=== PATIENT | female | born 1990 | race Caucasian/White ===

== ENCOUNTER 2017-08-18 16:49 | Emergency (ER) | payer OTHER ==
[2017-08-18 16:55] VITALS: RESP 18
[2017-08-18 16:58] LABS: Glucose,Whole Blood 189 mg/dL (75-99)
[2017-08-18] MEDS ORDERED: SODIUM CHLORIDE 0.9% 1,000 ML IV ONE (17:12)
--- NOTE | 2017-08-18 17:24 | ED ---
Female Urogenital HPI - General Chief complaint: Vaginal Bleeding Stated complaint: Vaginal Bleeding Time Seen by Provider: 08/18/17 17:12 Source: patient Mode of arrival: wheelchair Limitations: no limitations - History of Present Illness Initial comments: 26 year-old female patient presents to the emergency department today for evaluation of vaginal bleeding 24 hours. Patient states that she has had heavy vaginal bleeding with passage of large clots starting yesterday. She states that she has went through a whole box of pads. States she is changing her pads approximately every hour. She states that she has not had a menstrual period for the last 3 months. States that 3 months ago she did go to get an elective however when she arrived there they told her she was not . Patient states that today she is feeling very weak. She did have a syncopal episode while waiting in the waiting room. Patient is a A1. Patient had a spontaneous miscarriage approximate 3 years ago and did undergo D& C after that event. She states that she did have heavy bleeding like this after her D&C. She denies any issues since then. Patient states that she has been having intense cramping in her suprapubic region. She denies any back pain with this. Denies any abnormal vaginal discharge or odor leading up to this. Patient denies any recent rash, fever, chills, shortness breath, chest pain, nausea, vomiting, diarrhea, constipation, back pain, numbness, tingling, hematuria, dysuria, urinary urgency, urinary frequency, headache, visual changes , or any other complaints. Last Menstrual Period: 05/03/17 - Related Data Home Medications Medication Instructions Recorded Confirmed Acetaminophen Tab [Tylenol Tab] 1,000 mg PO Q6HR PRN 08/18/17 08/18/17 Previous Rx's Medication Instructions Recorded HYDROcodone/APAP 7.5-325MG [[place] 1 tab PO Q6HR PRN #20 tab 08/18/17 7.5-325] Ibuprofen [Motrin] 600 mg PO Q6HR PRN #30 tab 08/18/17 Methylergonovine [Methergine] 0.2 mg PO TID #14 tablet 08/18/17 Allergies Allergy/AdvReac Type Severity Reaction Status Date / Time No Known Allergies Allergy Verified 08/18/17 17:37 Review of Systems ROS Statement: Those systems with pertinent positive or pertinent negative responses have been documented in the HPI. ROS Other: All systems not noted in ROS Statement are negative. Past Medical History Past Medical History: Diabetes Mellitus History of Any Multi-Drug Resistant Organisms: None Reported Past Surgical History: No Surgical Hx Reported Past Psychological History: No Psychological Hx Reported Smoking Status: Never smoker Past Alcohol Use History: None Reported Past Drug Use History: Marijuana General Exam Limitations: no limitations General appearance: alert, in no apparent distress, other (Physical well- developed, well-nourished, pale appearing adult female patient. Vital signs upon presentation are temperature 98.2F, pulse 100, respirations 18, blood pressure 111/70, pulse ox 100% on room air.) Eye exam: Present: normal appearance, PERRL, EOMI. Absent: scleral icterus, conjunctival injection, periorbital swelling ENT exam: Present: normal exam, normal oropharynx, mucous membranes moist Neck exam: Present: normal inspection. Absent: tenderness, meningismus, lymphadenopathy Respiratory exam: Present: normal lung sounds bilaterally. Absent: respiratory distress, wheezes, rales, rhonchi, stridor Cardiovascular Exam: Present: regular rate, normal rhythm, normal heart sounds. Absent: systolic murmur, diastolic murmur, rubs, gallop, clicks GI/Abdominal exam: Present: soft, tenderness (Mild suprapubic tenderness), normal bowel sounds. Absent: distended, guarding, rebound, rigid External exam: Present: normal external exam Speculum exam: Present: vaginal bleeding (Heavy vaginal bleeding, dark red), other (Large clots removed from the vaginal vault, no evidence of tissue noted). Absent: normal speculum exam Neurological exam: Present: oriented X3, CN II-XII intact. Absent: alert ( Drowsy) Psychiatric exam: Present: normal affect, normal mood Skin exam: Present: dry, intact, diaphoretic, pallor. Absent: warm (cool), normal color, rash Course Vital Signs 08/18/17 08/18/17 08/18/17 16:51 17:38 18:09 Temperature 98.2 F Pulse Rate 100 68 67 Respiratory 18 18 18 Rate Blood Pressure 111/70 101/81 94/69 O2 Sat by Pulse 100 100 100 Oximetry 08/18/17 08/18/17 08/18/17 19:45 20:26 21:16 Temperature Pulse Rate 78 72 73 Respiratory 18 18 18 Rate Blood Pressure 111/56 91/52 96/55 O2 Sat by Pulse 98 99 99 Oximetry 08/18/17 22:09 Temperature 97.1 F L Pulse Rate 77 Respiratory 18 Rate Blood Pressure 97/56 O2 Sat by Pulse 99 Oximetry Medical Decision Making - Medical Decision Making 26 year-old female patient presented to the emergency department today for evaluation of heavy vaginal bleeding 24 hours. Patient did have a syncopal episode in the waiting room which I witnessed, patient was very pale and unresponsive, episode lasted approximately 30 seconds. Physical examination did reveal some suprapubic abdominal tenderness. Pelvic examination was performed and did reveal copious amounts of vaginal bleeding with large clots which I removed with ring forceps. Labs were reviewed and did show a normal H& H. HCG was around 6000 today. Ultrasound of the pelvis did show irregular- shaped fluid collection extending into the cervix and upper vagina, heterogeneity in the cervix and vagina that is ill-defined and could also relate to blood products although underlying mass is possible, heterogenous and hypervascular thickened endometrium. Patient blood pressures did decrease into the upper 80s and low 90s. She did receive 2500 mL of normal saline fluid bolus. Initially patient was symptomatic with dizziness upon standing. My attending Dr. Stark did consult RN SPINE Dr. Gordillo who saw patient here in the emergency department. She was able to obtain what appeared to be products of conception from the cervix and vagina. These were sent to the lab for further studies. Patient bleeding did improve. Patient blood pressures have improved. She is able to ambulate without dizziness. She will be discharged home at this time to follow-up with Dr. Gordillo in the office in one week. Dr. Gordillo has provided prescriptions for her. She is instructed to return here immediately should her bleeding increase, or if she develops any other new or worsening symptoms. Patient and significant other have been informed of all results. They verbalize understanding and agree with this plan. - Lab Data Result diagrams: 08/18/17 17:09 08/18/17 17:09 Lab Results 08/18/17 08/18/17 08/18/17 Range/Units 16:54 17:09 17:09 WBC 14.8 H (3.8-10.6) k/uL RBC 4.17 (3.80-5.40) m/uL Hgb 11.8 (11.4-16.0) gm/dL Hct 35.4 (34.0-46.0) % MCV 84.9 (80.0-100.0) fL MCH 28.3 (25.0-35.0) pg MCHC 33.4 (31.0-37.0) g/dL RDW 15.3 (11.5-15.5) % Plt Count 250 (150-450) k/uL Neutrophils % 82 % Lymphocytes % 12 % Monocytes % 3 % Eosinophils % 2 % Basophils % 0 % Neutrophils # 12.1 H (1.3-7.7) k/uL Lymphocytes # 1.8 (1.0-4.8) k/uL Monocytes # 0.5 (0-1.0) k/uL Eosinophils # 0.3 (0-0.7) k/uL Basophils # 0.1 (0-0.2) k/uL PT (9.0-12.0) sec INR (<1.2) APTT (22.0-30.0) sec Sodium 135 L (137-145) mmol/L Potassium 4.0 (3.5-5.1) mmol/L Chloride 102 (98-107) mmol/L Carbon Dioxide 24 (22-30) mmol/L Anion Gap 9 mmol/L BUN 11 (7-17) mg/dL Creatinine 0.70 (0.52-1.04) mg/dL Est GFR (MDRD) Af Amer >60 (>60 ml/min/1.73 sqM) Est GFR (MDRD) Non-Af >60 (>60 ml/min/1.73 sqM) Glucose 120 H (74-99) mg/dL POC Glucose (mg/dL) 189 H (75-99) mg/dL POC Glu Dinkey Brakeman ID Danae Kendrick Calcium 9.3 (8.4-10.2) mg/dL Total Bilirubin 0.7 (0.2-1.3) mg/dL AST 24 (14-36) U/L ALT 36 (9-52) U/L Alkaline Phosphatase 42 (38-126) U/L Total Protein 6.5 (6.3-8.2) g/dL Albumin 4.0 (3.5-5.0) g/dL HCG, Qual Detected HCG, Quant mIU/mL Blood Type Blood Type Confirm Blood Type Recheck Antibody Screen Spec Expiration Date 08/18/17 08/18/17 08/18/17 Range/Units 17:09 17:09 17:09 WBC (3.8-10.6) k/uL RBC (3.80-5.40) m/uL Hgb (11.4-16.0) gm/dL Hct (34.0-46.0) % MCV (80.0-100.0) fL MCH (25.0-35.0) pg MCHC (31.0-37.0) g/dL RDW (11.5-15.5) % Plt Count (150-450) k/uL Neutrophils % % Lymphocytes % % Monocytes % % Eosinophils % % Basophils % % Neutrophils # (1.3-7.7) k/uL Lymphocytes # (1.0-4.8) k/uL Monocytes # (0-1.0) k/uL Eosinophils # (0-0.7) k/uL Basophils # (0-0.2) k/uL PT 11.1 (9.0-12.0) sec INR 1.1 (<1.2) APTT 21.7 L (22.0-30.0) sec Sodium (137-145) mmol/L Potassium (3.5-5.1) mmol/L Chloride (98-107) mmol/L Carbon Dioxide (22-30) mmol/L Anion Gap mmol/L BUN (7-17) mg/dL Creatinine (0.52-1.04) mg/dL Est GFR (MDRD) Af Amer (>60 ml/min/1.73 sqM) Est GFR (MDRD) Non-Af (>60 ml/min/1.73 sqM) Glucose (74-99) mg/dL POC Glucose (mg/dL) (75-99) mg/dL POC Glu Dinkey Brakeman ID Calcium (8.4-10.2) mg/dL Total Bilirubin (0.2-1.3) mg/dL AST (14-36) U/L ALT (9-52) U/L Alkaline Phosphatase (38-126) U/L Total Protein (6.3-8.2) g/dL Albumin (3.5-5.0) g/dL HCG, Qual HCG, Quant 6519.4 mIU/mL Blood Type AB Positive Blood Type Confirm Blood Type Recheck CABO Indicated Antibody Screen NEGATIVE Spec Expiration Date 08/21/2017230808/18/17 Range/Units 18:20 WBC (3.8-10.6) k/uL RBC (3.80-5.40) m/uL Hgb (11.4-16.0) gm/dL Hct (34.0-46.0) % MCV (80.0-100.0) fL MCH (25.0-35.0) pg MCHC (31.0-37.0) g/dL RDW (11.5-15.5) % Plt Count (150-450) k/uL Neutrophils % % Lymphocytes % % Monocytes % % Eosinophils % % Basophils % % Neutrophils # (1.3-7.7) k/uL Lymphocytes # (1.0-4.8) k/uL Monocytes # (0-1.0) k/uL Eosinophils # (0-0.7) k/uL Basophils # (0-0.2) k/uL PT (9.0-12.0) sec INR (<1.2) APTT (22.0-30.0) sec Sodium (137-145) mmol/L Potassium (3.5-5.1) mmol/L Chloride (98-107) mmol/L Carbon Dioxide (22-30) mmol/L Anion Gap mmol/L BUN (7-17) mg/dL Creatinine (0.52-1.04) mg/dL Est GFR (MDRD) Af Amer (>60 ml/min/1.73 sqM) Est GFR (MDRD) Non-Af (>60 ml/min/1.73 sqM) Glucose (74-99) mg/dL POC Glucose (mg/dL) (75-99) mg/dL POC Glu Dinkey Brakeman ID Calcium (8.4-10.2) mg/dL Total Bilirubin (0.2-1.3) mg/dL AST (14-36) U/L ALT (9-52) U/L Alkaline Phosphatase (38-126) U/L Total Protein (6.3-8.2) g/dL Albumin (3.5-5.0) g/dL HCG, Qual HCG, Quant mIU/mL Blood Type Blood Type Confirm AB Positive Blood Type Recheck Antibody Screen Spec Expiration Date 08/18/17 18:21 EKG obtained at 1717 shows normal sinus rhythm with a ventricular rate of 72, OK interval 160, QRS duration 82, QT 422, QTc 462. No evidence of ST elevation or depression. - Radiology Data Radiology results: report reviewed, image reviewed Ultrasound of the pelvis was obtained, report reviewed in its entirety, impression by Dr. Machado shows diffusely thickened and heterogenous hypervascular endometrium containing an irregular-shaped fluid collection extending into the cervix and upper vagina. Correlate with beta hCG is this could represent expelling of an embryonic or large evolving hematoma. Extensive heterogeneity within the cervix and vagina that is ill-defined and could also relate to blood products although underlying masses possible direct visualization is recommended. Heterogenous hypervascular thickened endometrium should be correlated with him of prior D&C as retained products of conception and endometrits could be possible in the appropriate clinical setting. Disposition Clinical Impression: Spontaneous , Vaginal bleeding, Syncope Disposition: HOME SELF-CARE Condition: Good Instructions: Miscarriage (ED) Additional Instructions: Monitor bleeding. Pelvic rest, no sexual intercourse, do not insert anything into the vagina. Increase fluids. Keep appointment with RN [facility]. Follow-up with your primary care physician for recheck in 1-2 days. Return here immediately for any new, worsening, or concerning symptoms. Prescriptions: HYDROcodone/APAP 7.5-325MG [[place] 7.5-325] 1 tab PO Q6HR PRN #20 tab PRN Reason: Pain Ibuprofen [Motrin] 600 mg PO Q6HR PRN #30 tab PRN Reason: Mild Pain Or Fever >= 100.5 Methylergonovine [Methergine] 0.2 mg PO TID #14 tablet Referrals: Keisha Gordillo DO [Doctor of Osteopathic Medicine] - 1 Week None,Stated [Primary Care Provider] - 1-2 days Time of Disposition: 21:42
[2017-08-18 17:44] LABS: Basophils # (A) 0.1 k/uL (0-0.2); Basophils % (A) 0 %; Eosinophils # (A) 0.3 k/uL (0-0.7); Eosinophils % (A) 2 %; HCT 35.4 % (34.0-46.0); HGB 11.8 gm/dL (11.4-16.0); Lymphocytes # (A) 1.8 k/uL (1.0-4.8); Lymphocytes % (A) 12 %; MCH 28.3 pg (25.0-35.0); MCHC 33.4 g/dL (31.0-37.0); MCV 84.9 fL (80.0-100.0); Mean Platelet Volume 8.9; Monocytes # (A) 0.5 k/uL (0-1.0); Monocytes % (A) 3 %; Neutrophils # (A) 12.1 k/uL (1.3-7.7); Neutrophils % (A) 82 %; Platelet Count 250 k/uL (150-450); RBC 4.17 m/uL (3.80-5.40); RDW 15.3 % (11.5-15.5); WBC 14.8 k/uL (3.8-10.6)
[2017-08-18 17:52] LABS: HCG,Qualitative Serum Detected
[2017-08-18 17:54] LABS: ALT 36 U/L (9-52); AST 24 U/L (14-36); Alkaline Phosphatase 42 U/L (38-126); Anion Gap 9 mmol/L; Blood Urea Nitrogen 11 mg/dL (7-17); Calcium 9.3 mg/dL (8.4-10.2); Carbon Dioxide 24 mmol/L (22-30); Chloride 102 mmol/L (98-107); Glucose 120 mg/dL (74-99); Sodium 135 mmol/L (137-145); Total Bilirubin 0.7 mg/dL (0.2-1.3); Total Protein 6.5 g/dL (6.3-8.2)
[2017-08-18 17:59] LABS: INR 1.1 (<1.2); Prothrombin Time 11.1 sec (9.0-12.0)
[2017-08-18 18:01] LABS: Partial Thromboplastin Time 21.7 sec (22.0-30.0)
[2017-08-18] MEDS ORDERED: SODIUM CHLORIDE 0.9% 1,000 ML IV STA (18:15)
--- NOTE | 2017-08-18 19:20 | US ---
EXAMINATION TYPE: US OB <=14 wks transvag DATE OF EXAM: 08/18/2017 COMPARISON: NONE CLINICAL HISTORY: pain. Bleeding and cramping x 2 days, 5, para 3, miscarriage 1, history of D&C EXAM PERFORMED: Transvaginal (TV) and Transabdominal (TA) EXAM MEASUREMENTS: GESTATIONAL AGE / DATING Physician Established: Not established yet Dates by LMP: Unknown Dates by First Scan: This is first scan Dates by Current Scan for: No IUP seen at this time MATERNAL ANATOMY Uterus: 12.3 x 5.8 x 6.6cm Endometrium: thickened at 2.4cm, heterogeneous, hypervascular, 3.1cm cystic area endocervical canal Right Ovary: 3.0 x 1.9 x 1.8cm Left Ovary: 2.4 x 1.0 x 2.2cm Post CDS / Adnexa: wnl Presence of free fluid: no Presence of corpus luteal cyst: no 6.5 x 4.3 x 9.7cm complex area that appears to be within upper portion of vagina, possible blood cl ot vs. gestational sac. GESTATION / SURVEY IUP: No IUP seen at this time Date of LMP: 3 months ago Beta HcG (if available): Not available at time of exam IMPRESSION: 1. Diffusely thickened and heterogenous hypervascular endometrium containing an irregular shaped flui d collection extending into the cervix and upper vagina. Correlate with beta-hCG as this could repres ent expelling of an embryonic or large evolving hematoma. 2. Extensive heterogeneity within the cervix and vagina that is ill-defined and could also relate to blood products although underlying mass is possible and direct visualization is recommended. 3. Heterogenous hypervascular thickened endometrium should be correlated with time of prior D&C as re tained products of conception and endometritis could be possible in the appropriate clinical setting.
[2017-08-18] MEDS ORDERED: HYDROmorphone 1 MG/ML 1 ML SYRINGE IVP STA (19:56)
[2017-08-18] MEDS ORDERED: ONDANSETRON 4 MG/2 ML VIAL IVP STA (19:56)
[2017-08-18] MEDS ORDERED: SODIUM CHLORIDE 0.9% 500 ML IV ONE (20:25)
[2017-08-18] MEDS ORDERED: ACETAMINOPHEN IV (For NPO) 1,000 MG in EMPTY BAG 1 BAG IVPB ONE (20:26)
[2017-08-18] MEDS ORDERED: METHYLERGONOVINE 0.2 MG/ML 1 ML AMP IM ONE (21:03)
--- NOTE | 2017-08-18 21:30 | P.OBCN ---
History of Present Illness Consult date: 08/18/17 Reason for consult: early problem (spontaneous ) Chief complaint: Pt presented with heavy vaginal bleeding and +preg test History of present illness: 26 year old presented to the ER with some heavy vaginal bleeding. She had a syncopal episode in the waiting room due to the bleeding and was passing clots and changing pads every half hour. bhcg was over 6000 today. US showed thickened endometrium and gestational sac in the lower cervical area, and clots in the vagina. The PA pulled clots from her vagina before I got here. pt contunes to have some heavy bleeding and cramping. Review of Systems All systems: negative Constitutional: Denies chills, Denies fever Eyes: denies blurred vision, denies pain Ears, nose, mouth and throat: Denies headache, Denies sore throat Cardiovascular: Denies chest pain, Denies shortness of breath Respiratory: Denies cough Gastrointestinal: Denies abdominal pain, Denies diarrhea, Denies nausea, Denies vomiting Genitourinary: Denies dysuria, Denies hematuria Musculoskeletal: Denies myalgias Integumentary: Denies pruritus, Denies rash Neurological: Denies numbness, Denies weakness Psychiatric: Denies anxiety, Denies depression Endocrine: Denies fatigue, Denies weight change Past Medical History Past Medical History: Diabetes Mellitus Additional Past Medical History / Comment(s): She has had 3 vaginal deliveries, one D&C for missed ab in 2010 and this is her fifth -she did not know she was until she started bleeding yesterday. History of Any Multi-Drug Resistant Organisms: None Reported Past Surgical History: No Surgical Hx Reported Past Psychological History: No Psychological Hx Reported Smoking Status: Never smoker Past Alcohol Use History: None Reported Past Drug Use History: Marijuana Medications and Allergies Home Medications Medication Instructions Recorded Confirmed Type Acetaminophen Tab [Tylenol Tab] 1,000 mg PO Q6HR PRN 08/18/17 08/18/17 History HYDROcodone/APAP 7.5-325MG [[place] 1 tab PO Q6HR PRN #20 tab 08/18/17 Rx 7.5-325] Ibuprofen [Motrin] 600 mg PO Q6HR PRN #30 tab 08/18/17 Rx Methylergonovine [Methergine] 0.2 mg PO TID #14 tablet 08/18/17 Rx Allergies Allergy/AdvReac Type Severity Reaction Status Date / Time No Known Allergies Allergy Verified 08/18/17 17:37 Exam Osteopathic Statement: *. No significant issues noted on an osteopathic structural exam other than those noted in the History and Physical/Consult. - Vital Signs Vital signs: Vital Signs Temp Pulse Resp BP Pulse Ox 08/18/17 20:26 72 18 91/52 99 08/18/17 19:45 78 18 111/56 98 08/18/17 18:09 67 18 94/69 100 08/18/17 17:38 68 18 101/81 100 08/18/17 16:51 98.2 F 100 18 111/70 100 Intake and Output 08/18/17 08/18/17 08/18/17 06:59 14:59 22:59 Other: Weight 53.07 kg Patient Weight 08/19/17 06:59 Weight 53.07 kg heart: RRR Lungs; CTAB Abdomen: soft, nontender Extremeties: neg samantha's pelvic exam: cervix is dilated, I did extract several clots and tissue from the uterus but the bleeding and cramping did slow after evacuation of these. Results Result Diagrams: 08/18/17 17:09 08/18/17 17:09 Abnormal Lab Results - Last 24 Hours (Table) 08/18/17 08/18/17 08/18/17 Range/Units 16:54 17:09 17:09 WBC 14.8 H (3.8-10.6) k/uL Neutrophils # 12.1 H (1.3-7.7) k/uL APTT (22.0-30.0) sec Sodium 135 L (137-145) mmol/L Glucose 120 H (74-99) mg/dL POC Glucose (mg/dL) 189 H (75-99) mg/dL 08/18/17 Range/Units 17:09 WBC (3.8-10.6) k/uL Neutrophils # (1.3-7.7) k/uL APTT 21.7 L (22.0-30.0) sec Sodium (137-145) mmol/L Glucose (74-99) mg/dL POC Glucose (mg/dL) (75-99) mg/dL Assessment and Plan (1) Spontaneous Current Visit: Yes Status: Acute Code(s): O03.9 - COMPLETE OR UNSP SPONTANEOUS WITHOUT COMPLICATION SNOMED Code(s): 53659898 Plan: 1. As long as she remains stable I will follow up with her outpatient 2. she will be discharged with methergine, norco, motrin and rx to have bhcg drawn weekly until zero. I will see her in my office next week.
[2017-08-18] MEDS ORDERED: HYDROcodone/APAP 5-325MG 1 EACH TAB PO STA (21:41)
[2017-08-18 22:10] VITALS: BP 97/56; PULSE 77; TEMP 97.1
== END 2017-08-18 22:10 | disposition home or self-care (01) ==
LOC: EC 16:49
DX: O03.9 Complete or unspecified spontaneous abortion without complication (principal); O99.89 Other specified diseases and conditions complicating pregnancy, childbirth and the puerperium; R61 Generalized hyperhidrosis; Z3A.00 Weeks of gestation of pregnancy not specified
CPT/HCPCS: 36415; 93005; 86900; 86901; 80053; 85025; 85610; 85730; 86850; 84703; 84702; 76801; 76817; 99285; 96365; 96375; 96361 ×4; 96372; J2210; J2405; J0131; 88305

== ENCOUNTER 2017-12-03 03:06 | Emergency (ER) | payer OTHER ==
[2017-12-03 03:15] VITALS: RESP 16; TEMP 98.1
[2017-12-03] MEDS ORDERED: RX INFO: IV CONTRAST WAS GIVEN 1 EACH MISC MISCELLANE PRN (03:16)
--- NOTE | 2017-12-03 03:19 | ED ---
General Adult HPI - General Chief complaint: Abdominal Pain Stated complaint: Abdominal Pain Time Seen by Provider: 12/03/17 03:10 Source: patient, EMS, RN notes reviewed Mode of arrival: EMS Limitations: no limitations - History of Present Illness Initial comments: This is a 27-year-old female who states she has bone cancer. Patient comes in today because she woke up in the middle the night with abdominal pain and states it was so severe it made her pass out briefly. Patient states she has an abrasion to the right cheek and her face but there is no pain. Patient denies any head trauma. Patient denies any neck pain. Patient denies any chest pain difficulty breathing shortness breath per patient denies any extremity pain. Patient states the abdominal pain is in the periumbilical. Patient denies any previous abdominal surgeries - Related Data Previous Rx's Medication Instructions Recorded HYDROcodone/APAP 7.5-325MG [[place] 1 tab PO Q6HR PRN #20 tab 08/18/17 7.5-325] Ibuprofen [Motrin] 600 mg PO Q6HR PRN #30 tab 08/18/17 Methylergonovine [Methergine] 0.2 mg PO TID #14 tablet 08/18/17 Allergies Allergy/AdvReac Type Severity Reaction Status Date / Time No Known Allergies Allergy Verified 08/24/17 07:55 Review of Systems ROS Statement: Those systems with pertinent positive or pertinent negative responses have been documented in the HPI. ROS Other: All systems not noted in ROS Statement are negative. Past Medical History Past Medical History: Diabetes Mellitus Additional Past Medical History / Comment(s): possible cancer dx History of Any Multi-Drug Resistant Organisms: None Reported Past Surgical History: No Surgical Hx Reported Past Psychological History: No Psychological Hx Reported Smoking Status: Former smoker Past Alcohol Use History: None Reported Past Drug Use History: Marijuana General Exam - General Exam Comments Initial Comments: GENERAL: Patient is well-developed and well-nourished. Patient is nontoxic and well- hydrated and is in mild distress. ENT: Neck is soft and supple. No significant lymphadenopathy is noted. Oropharynx is clear. Moist mucous membranes. Neck has full range of motion without eliciting any pain. EYES: The sclera were anicteric and conjunctiva were pink and moist. Extraocular movements were intact and pupils were equal round and reactive to light. Eyelids were unremarkable. PULMONARY: Unlabored respirations. Good breath sounds bilaterally. No audible rales rhonchi or wheezing was noted. CARDIOVASCULAR: There is a regular rate and rhythm without any murmurs gallops or rubs. ABDOMEN: Patient's periumbilical pain no rebound or guarding. No palpable organomegaly was noted. There is no palpable pulsatile mass. SKIN: Superficial abrasion to the right cheek NEUROLOGIC: Patient is alert and oriented x3. Cranial nerves II through XII are grossly intact. Motor and sensory are also intact. Normal speech, volume and content. Symmetrical smile. MUSCULOSKELETAL: Normal extremities with adequate strength and full range of motion. No lower extremity swelling or edema. No calf tenderness. LYMPHATICS: No significant lymphadenopathy is noted PSYCHIATRIC: Normal psychiatric evaluation. Normal interpersonal interactions appears functionally intact in deals appropriately with others. No signs of depression. No signs of anxiety. Limitations: no limitations Course Vital Signs 12/03/17 03:11 Temperature 98.1 F Pulse Rate 74 Respiratory 16 Rate Blood Pressure 111/55 O2 Sat by Pulse 100 Oximetry Medical Decision Making - Medical Decision Making Patient was sleeping when I walked in the room I woke her up she still said she was having abdominal pain that was somewhat improved so I gave her a little bit of morphine at this time - Lab Data Result diagrams: 12/03/17 03:17 12/03/17 03:17 Lab Results 12/03/17 12/03/17 12/03/17 Range/Units 03:17 03:17 04:00 WBC 5.3 (3.8-10.6) k/uL RBC 4.64 (3.80-5.40) m/uL Hgb 9.8 L (11.4-16.0) gm/dL Hct 32.1 L (34.0-46.0) % MCV 69.1 L (80.0-100.0) fL MCH 21.2 L (25.0-35.0) pg MCHC 30.6 L (31.0-37.0) g/dL RDW 16.5 H (11.5-15.5) % Plt Count 177 (150-450) k/uL Neutrophils % 44 % Lymphocytes % 39 % Monocytes % 7 % Eosinophils % 5 % Basophils % 1 % Neutrophils # 2.3 (1.3-7.7) k/uL Lymphocytes # 2.1 (1.0-4.8) k/uL Monocytes # 0.4 (0-1.0) k/uL Eosinophils # 0.3 (0-0.7) k/uL Basophils # 0.0 (0-0.2) k/uL Hypochromasia Moderate Anisocytosis Slight Microcytosis Marked Sodium 142 (137-145) mmol/L Potassium 3.7 (3.5-5.1) mmol/L Chloride 106 (98-107) mmol/L Carbon Dioxide 26 (22-30) mmol/L Anion Gap 10 mmol/L BUN 15 (7-17) mg/dL Creatinine 0.70 (0.52-1.04) mg/dL Est GFR (CKD-EPI)AfAm >90 (>60 ml/min/1.73 sqM) Est GFR (CKD-EPI)NonAf >90 (>60 ml/min/1.73 sqM) Glucose 111 H (74-99) mg/dL Calcium 8.8 (8.4-10.2) mg/dL Total Bilirubin 0.1 L (0.2-1.3) mg/dL AST 21 (14-36) U/L ALT 26 (9-52) U/L Alkaline Phosphatase 42 (38-126) U/L Total Protein 6.2 L (6.3-8.2) g/dL Albumin 3.7 (3.5-5.0) g/dL Amylase 64 (30-110) U/L Lipase 64 (23-300) U/L Urine Color Urine Appearance (Clear) Urine pH (5.0-8.0) Ur Specific [place] (1.001-1.035) Urine Protein (Negative) Urine Glucose (UA) (Negative) Urine Ketones (Negative) Urine Blood (Negative) Urine Nitrite (Negative) Urine Bilirubin (Negative) Urine Urobilinogen (<2.0) mg/dL Ur Leukocyte Esterase (Negative) Urine RBC (0-5) /hpf Urine WBC (0-5) /hpf Ur Squamous Epith Cells (0-4) /hpf Hyaline Casts (0-2) /lpf Urine Mucus (None) /hpf Urine HCG, Qual (Not Detectd) Urine Opiates Screen Not Detected (NotDetected) Ur Oxycodone Screen Not Detected (NotDetected) Urine Methadone Screen Not Detected (NotDetected) Ur Propoxyphene Screen Not Detected (NotDetected) Ur Barbiturates Screen Not Detected (NotDetected) U Tricyclic Antidepress Not Detected (NotDetected) Ur Phencyclidine Scrn Not Detected (NotDetected) Ur Amphetamines Screen Not Detected (NotDetected) U Methamphetamines Scrn Not Detected (NotDetected) U Benzodiazepines Scrn Not Detected (NotDetected) Urine Cocaine Screen Not Detected (NotDetected) U Marijuana (THC) Screen Detected H (NotDetected) 12/03/17 12/03/17 Range/Units 04:00 04:00 WBC (3.8-10.6) k/uL RBC (3.80-5.40) m/uL Hgb (11.4-16.0) gm/dL Hct (34.0-46.0) % MCV (80.0-100.0) fL MCH (25.0-35.0) pg MCHC (31.0-37.0) g/dL RDW (11.5-15.5) % Plt Count (150-450) k/uL Neutrophils % % Lymphocytes % % Monocytes % % Eosinophils % % Basophils % % Neutrophils # (1.3-7.7) k/uL Lymphocytes # (1.0-4.8) k/uL Monocytes # (0-1.0) k/uL Eosinophils # (0-0.7) k/uL Basophils # (0-0.2) k/uL Hypochromasia Anisocytosis Microcytosis Sodium (137-145) mmol/L Potassium (3.5-5.1) mmol/L Chloride (98-107) mmol/L Carbon Dioxide (22-30) mmol/L Anion Gap mmol/L BUN (7-17) mg/dL Creatinine (0.52-1.04) mg/dL Est GFR (CKD-EPI)AfAm (>60 ml/min/1.73 sqM) Est GFR (CKD-EPI)NonAf (>60 ml/min/1.73 sqM) Glucose (74-99) mg/dL Calcium (8.4-10.2) mg/dL Total Bilirubin (0.2-1.3) mg/dL AST (14-36) U/L ALT (9-52) U/L Alkaline Phosphatase (38-126) U/L Total Protein (6.3-8.2) g/dL Albumin (3.5-5.0) g/dL Amylase (30-110) U/L Lipase (23-300) U/L Urine Color Yellow Urine Appearance Clear (Clear) Urine pH 7.5 (5.0-8.0) Ur Specific [place] 1.021 (1.001-1.035) Urine Protein 1+ H (Negative) Urine Glucose (UA) Negative (Negative) Urine Ketones Negative (Negative) Urine Blood Negative (Negative) Urine Nitrite Negative (Negative) Urine Bilirubin Negative (Negative) Urine Urobilinogen <2.0 (<2.0) mg/dL Ur Leukocyte Esterase Trace H (Negative) Urine RBC <1 (0-5) /hpf Urine WBC 2 (0-5) /hpf Ur Squamous Epith Cells <1 (0-4) /hpf Hyaline Casts 9 H (0-2) /lpf Urine Mucus Few H (None) /hpf Urine HCG, Qual Not Detected (Not Detectd) Urine Opiates Screen (NotDetected) Ur Oxycodone Screen (NotDetected) Urine Methadone Screen (NotDetected) Ur Propoxyphene Screen (NotDetected) Ur Barbiturates Screen (NotDetected) U Tricyclic Antidepress (NotDetected) Ur Phencyclidine Scrn (NotDetected) Ur Amphetamines Screen (NotDetected) U Methamphetamines Scrn (NotDetected) U Benzodiazepines Scrn (NotDetected) Urine Cocaine Screen (NotDetected) U Marijuana (THC) Screen (NotDetected) Disposition Clinical Impression: Anemia, Abdominal pain Disposition: HOME SELF-CARE Instructions: Abdominal Pain (ED) Referrals: Rodrigo Mcdermott MD [Primary Care Provider] - 1-2 days Time of Disposition: 05:22
[2017-12-03] MEDS ORDERED: KETOROLAC 60 MG/2 ML VIAL IVP STA (03:23)
[2017-12-03 03:26] LABS: Anisocytosis Slight; Basophils % (A) 1 %; Eosinophils # (A) 0.3 k/uL (0-0.7); Eosinophils % (A) 5 %; HCT 32.1 % (34.0-46.0); HGB 9.8 gm/dL (11.4-16.0); Hypochromasia Moderate; Lymphocytes # (A) 2.1 k/uL (1.0-4.8); Lymphocytes % (A) 39 %; MCH 21.2 pg (25.0-35.0); MCHC 30.6 g/dL (31.0-37.0); MCV 69.1 fL (80.0-100.0); Mean Platelet Volume 7.5; Microcytosis Marked; Monocytes # (A) 0.4 k/uL (0-1.0); Monocytes % (A) 7 %; Neutrophils # (A) 2.3 k/uL (1.3-7.7); Neutrophils % (A) 44 %; Platelet Count 177 k/uL (150-450); RBC 4.64 m/uL (3.80-5.40); RDW 16.5 % (11.5-15.5); WBC 5.3 k/uL (3.8-10.6)
[2017-12-03 03:37] LABS: ALT 26 U/L (9-52); AST 21 U/L (14-36); Albumin 3.7 g/dL (3.5-5.0); Alkaline Phosphatase 42 U/L (38-126); Amylase 64 U/L (30-110); Anion Gap 10 mmol/L; Blood Urea Nitrogen 15 mg/dL (7-17); Calcium 8.8 mg/dL (8.4-10.2); Carbon Dioxide 26 mmol/L (22-30); Chloride 106 mmol/L (98-107); Glucose 111 mg/dL (74-99); Lipase 64 U/L (23-300); Potassium 3.7 mmol/L (3.5-5.1); Sodium 142 mmol/L (137-145); Total Bilirubin 0.1 mg/dL (0.2-1.3); Total Protein 6.2 g/dL (6.3-8.2)
[2017-12-03 04:18] LABS: Amphetamine Screen,Urine Not Detected (NotDetected); Barbiturate Screen,Urine Not Detected (NotDetected); Benzodiazepines Screen,Urine Not Detected (NotDetected); Cocaine Screen,Urine Not Detected (NotDetected); Methadone Screen, Urine Not Detected (NotDetected); Opiate Screen,Urine Not Detected (NotDetected); Oxycodone Screen, Urine Not Detected (NotDetected); Phencyclidine Screen,Urine Not Detected (NotDetected); Tricyclic Antidepressant,Urine Not Detected (NotDetected); Urn Cannabinoid Scrn Detected (NotDetected)
[2017-12-03 04:26] LABS: Appearance,Urine Clear (Clear); Bilirubin,Urine Negative (Negative); Blood,Urine Negative (Negative); Color,Urine Yellow; Glucose,Urine (UA) Negative (Negative); Hyaline Casts,Urine 9 /lpf (0-2); Ketones,Urine Negative (Negative); Leukocyte Esterase,Urine Trace (Negative); Mucus,Urine Few /hpf; Nitrite,Urine Negative (Negative); PH, Urine 7.5 (5.0-8.0); Protein,Urine 1+ (Negative); RBC,Urine <1 /hpf (0-5); Specific Gravity,Urine 1.021 (1.001-1.035); Squamous Epithelial Cell,Urine <1 /hpf (0-4); Urobilinogen,Urine <2.0 mg/dL (<2.0); WBC,Urine 2 /hpf (0-5)
--- NOTE | 2017-12-03 05:02 | CT ---
EXAM: CT Abdomen and Pelvis With Intravenous Contrast CLINICAL HISTORY: Its. reason CT Reason: abdominal pain TECHNIQUE: Axial computed tomography images of the abdomen and pelvis with intravenous contrast. CTE is 9.90 mGy. DLP is 334.90 mGy-cm. This CT exam was performed using one or more of the following dose reduction techniques: automated exposure control, adjustment of the mA and/or kV according to patient size, and/or use of iterative reconstruction technique. COMPARISON: No relevant prior studies available. FINDINGS: Lung bases: Unremarkable. No mass. No consolidation. ABDOMEN: Liver: Unremarkable. No mass. Gallbladder and bile ducts: Unremarkable. No calcified stones. No ductal dilation. Pancreas: Unremarkable. No mass. No ductal dilation. Spleen: Unremarkable. No splenomegaly. Adrenals: Unremarkable. No mass. Kidneys and ureters: Unremarkable. No solid mass. No hydronephrosis. Stomach and bowel: Colonic fecal stasis. No obstruction. No mucosal thickening. Appendix: Appendix is normal. PELVIS: Bladder: Unremarkable. No mass. Reproductive: Density in the right adnexal area which may represent a hemorrhagic ovarian cyst or dystrophic calcification. ABDOMEN and PELVIS: Intraperitoneal space: Unremarkable. No free air. No significant fluid collection. Bones/joints: No acute fracture. No dislocation. Soft tissues: Unremarkable. Vasculature: Unremarkable. No abdominal aortic aneurysm. Lymph nodes: Unremarkable. No enlarged lymph nodes. IMPRESSION: 1. No acute intra-abdominal or intrapelvic process. 2. Colonic fecal stasis. 3. Focal hyperdensity in the right adnexal area which may represent a hemorrhagic ovarian cyst or dystrophic calcification. Pelvic ultrasound may be helpful for further evaluation.
[2017-12-03] MEDS ORDERED: MORPHINE SULFATE 4MG/4ML SYRG IVP STA (05:22)
[2017-12-03 05:35] VITALS: BP 92/50; PULSE 58
== END 2017-12-03 05:38 | disposition home or self-care (01) ==
LOC: EC 03:06
DX: D64.9 Anemia, unspecified (principal); R10.33 Periumbilical pain; S00.81XA Abrasion of other part of head, initial encounter; Z87.891 Personal history of nicotine dependence; X58.XXXA Exposure to other specified factors, initial encounter
CPT/HCPCS: 36415; 80053; 82150; 83690; 85025; 81001; 81025; 80306; 74177; 99285; 96374; 96375; J1885; Q9967; J2270

== ENCOUNTER 2018-03-12 13:19 | Emergency (ER) | payer OTHER ==
[2018-03-12 13:28] VITALS: BP 102/70; PULSE 63; RESP 18; TEMP 98.4
[2018-03-12] MEDS ORDERED: DIPH,PERTUS(ACELL)TETVAC-LF 0.5 ML VIAL IM ONE (13:36)
--- NOTE | 2018-03-12 13:41 | ED ---
Lower Extremity Injury HPI - General Chief Complaint: Extremity Injury, Lower Stated Complaint: Foot Injury/Stepped on nail Time Seen by Provider: 03/12/18 13:30 Source: patient, RN notes reviewed Mode of arrival: wheelchair Limitations: no limitations - History of Present Illness Initial Comments: 27-year-old female presents emergency Department chief complaint left foot pain. Patient states that she stepped on a nail yesterday with her bare foot. Patient states that they're remodeling her basement states that she stepped on a rhonda nail. She is unsure when her last tetanus was. Patient denies any fever or chills. She states that is very painful cannot weight-bear at all today. She has been doing warm soaks has been no redness and no drainage. Patient reports no radiating pain no paresthesias. - Related Data Home Medications Medication Instructions Recorded Confirmed clonazePAM [KlonoPIN] 0.5 mg PO BID 03/12/18 03/12/18 Previous Rx's Medication Instructions Recorded Cephalexin [Keflex] 500 mg PO Q6HR #28 cap 03/12/18 Allergies Allergy/AdvReac Type Severity Reaction Status Date / Time No Known Allergies Allergy Verified 03/12/18 13:28 Review of Systems ROS Statement: Those systems with pertinent positive or pertinent negative responses have been documented in the HPI. ROS Other: All systems not noted in ROS Statement are negative. Past Medical History Past Medical History: Diabetes Mellitus Additional Past Medical History / Comment(s): possible cancer dx History of Any Multi-Drug Resistant Organisms: MRSA Date of last positivie culture/infection: 2013 MDRO Source:: lip Past Surgical History: No Surgical Hx Reported Additional Past Surgical History / Comment(s): D&C 2010 Past Psychological History: No Psychological Hx Reported Smoking Status: Former smoker Past Alcohol Use History: None Reported Past Drug Use History: Marijuana General Exam General appearance: alert, in no apparent distress Respiratory exam: Present: normal lung sounds bilaterally. Absent: respiratory distress, wheezes, rales, rhonchi, stridor Cardiovascular Exam: Present: regular rate, normal rhythm, normal heart sounds. Absent: systolic murmur, diastolic murmur, rubs, gallop, clicks Extremities exam: Present: other (Left foot times palpation at the ball of the foot there is a puncture wound noted in no erythema no warmth foot is neurovascularly intact and full range of motion.) Skin exam: Present: warm, dry, intact Course Vital Signs 03/12/18 13:24 Temperature 98.4 F Pulse Rate 63 Respiratory 18 Rate Blood Pressure 102/70 O2 Sat by Pulse 98 Oximetry Medical Decision Making - Medical Decision Making 27-year-old female presented from for stepped in a nail. Patient's tetanus was updated x-ray obtained no acute foreign body. Patient will be placed on antibiotics for staph coverage. She did not step on nail through a shoe sole. Patient will be placed on Keflex at this time. Disposition Clinical Impression: Puncture wound of foot Disposition: HOME SELF-CARE Condition: Stable Instructions: Puncture Wound (ED) Additional Instructions: Please return to the Emergency Department if symptoms worsen or any other concerns. Prescriptions: Cephalexin [Keflex] 500 mg PO Q6HR #28 cap Is patient prescribed a controlled substance at d/c from ED?: No Referrals: Rodrigo Mcdermott MD [Primary Care Provider] - 1-2 days Time of Disposition: 14:23
--- NOTE | 2018-03-12 14:13 | XR ---
EXAMINATION TYPE: XR foot complete LT DATE OF EXAM: 03/12/2018 COMPARISON: NONE HISTORY: 27-year-old female stepped on nail, pain TECHNIQUE: 3 views FINDINGS: No retained radiopaque foreign body seen. No soft tissue gas. No acute fracture, subluxation, or disl ocation. IMPRESSION: No acute osseous abnormality seen. No retained radiopaque foreign body material.
[2018-03-12] MEDS ORDERED: IBUPROFEN 600 MG TAB PO STA (14:25)
== END 2018-03-12 14:30 | disposition home or self-care (01) ==
LOC: EC 13:19
DX: S91.332A Puncture wound without foreign body, left foot, initial encounter (principal); Z23 Encounter for immunization; Z87.891 Personal history of nicotine dependence; Z86.14 Personal history of Methicillin resistant Staphylococcus aureus infection; Z79.899 Other long term (current) drug therapy; W45.0XXA Nail entering through skin, initial encounter; Y93.89 Activity, other specified; Y92.008 Other place in unspecified non-institutional (private) residence as the place of occurrence of the external cause
CPT/HCPCS: 90471; 90715; 99283

== ENCOUNTER 2018-06-13 12:17 | Emergency (ER) | payer OTHER ==
[2018-06-13 12:31] VITALS: RESP 18
[2018-06-13] MEDS ORDERED: HYDROcodone/APAP 7.5-325MG 1 EACH TAB PO ONE (12:45)
--- NOTE | 2018-06-13 12:57 | ED ---
Lower Extremity Injury HPI - General Chief Complaint: Extremity Injury, Lower Stated Complaint: lt foot injury Time Seen by Provider: 06/13/18 12:40 Source: patient Mode of arrival: ambulatory Limitations: no limitations - History of Present Illness Initial Comments: 27-year-old female who denies past medical history presenting today for chief complaint of left foot pain. Patient states that yesterday around 6:30 PM she was chasing her cat that got out of her home, which she stepped on her foot wrong. Patient immediately noticed pain of the lateral aspect of the left foot. Patient states applying pressure to the foot and ambulating increases the pain. Patient is not able to fully weight-bear. Patient is using crutches for ambulation. Patient noted bruising of the dorsal/lateral aspect of the foot. Patient was concerned about fracture and presents today for evaluation. Patient states she has been taking Tylenol for pain management, which is helped minimally. Patient states pain as 10 out of 10. Patient denies pain of the ankle, or lower extremity, coolness of the extremity, numbness/tingling or loss of sensation of the left foot. Patient denies falling hitting head or injury to any other extremity. Upon arrival patient appears well. Patient has crutches at bedside. Vital signs within normal limits. - Related Data Home Medications Medication Instructions Recorded Confirmed clonazePAM [KlonoPIN] 0.5 mg PO BID 03/12/18 03/12/18 Previous Rx's Medication Instructions Recorded Cephalexin [Keflex] 500 mg PO Q6HR #28 cap 03/12/18 RX: Ibuprofen [Motrin] 600 mg PO Q8HR PRN #30 tab 03/12/18 Acetaminophen with Codeine 1 tab PO Q6H PRN 3 Days #12 tab 06/13/18 [Tylenol w/codeine #3] Allergies Allergy/AdvReac Type Severity Reaction Status Date / Time No Known Allergies Allergy Verified 06/13/18 12:28 Review of Systems ROS Statement: Those systems with pertinent positive or pertinent negative responses have been documented in the HPI. ROS Other: All systems not noted in ROS Statement are negative. Constitutional: Denies: fever, chills, night sweats Eyes: Denies: eye pain ENT: Denies: ear pain, throat pain, dental pain Respiratory: Denies: cough, dyspnea, wheezes, hemoptysis, stridor Cardiovascular: Denies: chest pain, palpitations Endocrine: Denies: fatigue Gastrointestinal: Denies: abdominal pain, nausea, vomiting, diarrhea, constipation Genitourinary: Denies: urgency, dysuria Musculoskeletal: Reports: arthralgia (left foot pain). Denies: back pain Skin: Reports: change in color (ecchymosis of the left foot). Denies: rash, lesions Neurological: Denies: headache, weakness, numbness, paresthesias, confusion, abnormal gait Past Medical History Past Medical History: Diabetes Mellitus Additional Past Medical History / Comment(s): possible cancer dx History of Any Multi-Drug Resistant Organisms: MRSA Date of last positivie culture/infection: 2013 MDRO Source:: lip Past Surgical History: No Surgical Hx Reported Additional Past Surgical History / Comment(s): D&C 2010 Past Psychological History: No Psychological Hx Reported Smoking Status: Former smoker Past Alcohol Use History: None Reported Past Drug Use History: Marijuana General Exam - General Exam Comments Initial Comments: General: The patient is awake and alert, in no distress, and does not appear acutely ill. Eye: Pupils are equal, round and reactive to light, extra-ocular movements are intact. No nystagmus. There is normal conjunctiva bilaterally. No signs of icterus. Cardiovascular: There is a regular rate and rhythm. No murmur, rub or gallop is appreciated. Respiratory: Lungs are clear to auscultation, respirations are non-labored, breath sounds are equal. No wheezes, stridor, rales, or rhonchi. Musculoskeletal: Upon inspection there is significant ecchymosis of the left dorsum. Pt is able to dorsiflex and plantar flex however complains of pain in forefoot with all movements, tenderness to palpation from base of 4th MTP joint to the fifth MTP joint/metatarsals laterally. Sensation intact of the foot and left LE. DP pulses equal bilaterally 2+. Capillary refill < 2seconds. Neurological: A&O x 3. CN II-XII intact, There are no obvious motor or sensory deficits. Coordination appears grossly intact. Speech is normal. Skin: Skin is warm and dry and no rashes or lesions are noted. Psychiatric: Cooperative, appropriate mood & affect, normal judgment. Limitations: no limitations Course Vital Signs 06/13/18 12:28 Temperature 98.3 F Pulse Rate 63 Respiratory 18 Rate Blood Pressure 102/69 O2 Sat by Pulse 98 Oximetry Medical Decision Making - Medical Decision Making X-ray obtained revealed a minimally displaced fifth metatarsal fracture. Patient is placed in a posterior mold splint. Patient is neurovascularly intact. Patient is instructed to nonweight bear until orthopedic follow-up. Patient was instructed to call orthopedics to make an appointment for the next 2 -3 days. Patient agrees with plan. Patient verbalizes understanding. Patient was given a prescription for Tylenol 3 for pain management. Patient was given information on risk of use of opioids. We had a discussion on opioid use at length. Patient understands risks involved. Patient is instructed not to drive , operate machinery or work under the influence of opioids. Case discussed in detail with Dr. Denney Who reviewed imaging. At this time feel patient is stable for discharge with orthopedic surgery follow-up and use of crutches for an ambulation. Return parameters discussed in detail. Patient discharged in stable condition Disposition Clinical Impression: Fracture of 5th metatarsal Disposition: HOME SELF-CARE Condition: Good Instructions: Foot Fracture in Adults (ED) Additional Instructions: Please use over the counter pain medication as discussed. Please follow-up with orthopedic surgery in next 2-3 days. Please use crutches, no bearing weight on left foot. Please return to emergency room if the symptoms increase or worsen or for any other concerns. Prescriptions: Acetaminophen with Codeine [Tylenol w/codeine #3] 1 tab PO Q6H PRN 3 Days #12 tab PRN Reason: Moderate To Severe Pain Is patient prescribed a controlled substance at d/c from ED?: Yes When asked, does pt state using other controlled substances?: No If prescribed controlled substance>3 days was MAPS reviewed?: Prescribed <3 Days If opioid is for acute pain is fill amount 7 days or less?: Yes If Rx opioid, was Start Talking consent form obtained?: Yes Referrals: Rodrigo Mcdermott MD [Primary Care Provider] - 1-2 days Joel Wright MD [STAFF PHYSICIAN] - 1-2 days Time of Disposition: 13:51
--- NOTE | 2018-06-13 13:42 | XR ---
Left foot HISTORY: Trauma and pain 3 views of the left foot correlated to plain film 03/12/2018 There is an oblique fracture through the mid to distal diaphyseal fifth metatarsal. No dislocation. T here is minimal displacement. There is associated soft tissue swelling. IMPRESSION: Fifth metatarsal fracture.
[2018-06-13 14:34] VITALS: BP 94/53; PULSE 54; TEMP 98.6
== END 2018-06-13 14:33 | disposition home or self-care (01) ==
LOC: EC 12:17
DX: S92.352A Displaced fracture of fifth metatarsal bone, left foot, initial encounter for closed fracture (principal); Z86.14 Personal history of Methicillin resistant Staphylococcus aureus infection; Z87.891 Personal history of nicotine dependence; Z79.899 Other long term (current) drug therapy; W01.0XXA Fall on same level from slipping, tripping and stumbling without subsequent striking against object, initial encounter; Y92.009 Unspecified place in unspecified non-institutional (private) residence as the place of occurrence of the external cause
CPT/HCPCS: 29515; 99283